=== PATIENT | female | born 1985 | race Caucasian/White ===

== ENCOUNTER 2019-03-31 07:05 | Day surgery (SDC) | payer MEDICAID ==
[~2019-03-31 07:05] MED LIST: Lactated Ringers 1,000 ML IV SCH; Sodium Chloride 0.9% 10 ML Syringe FLUSH PRN
[2019-03-31] MEDS ORDERED: Midazolam 1 MG/ML 2 ML SDV IV ONE (07:06)
[2019-03-31] MEDS ORDERED: ceFAZolin 1 GM Vial IV ONE (07:06)
[2019-03-31] MEDS ORDERED: Lidocaine 2% 5 ML SDV IV ONE (07:06)
[2019-03-31] MEDS ORDERED: Lidocaine 2% 100 MG/5 ML Syringe IVPUSH ONE (07:06)
[2019-03-31] MEDS ORDERED: Propofol 200 MG/20 ML SDV IV ONE (07:06)
[2019-03-31] MEDS ORDERED: Sodium Chloride 0.9% 0 ML ONE ×2 (07:50→08:44)
[2019-03-31] MEDS ORDERED: Lidocaine 2% Jelly 5 ML Tube ONE ×3 (08:03→08:41)
[2019-03-31] MEDS ORDERED: fentaNYL 100 MCG/2 ML SDV ONE (08:05)
[2019-03-31] MEDS ORDERED: ceFAZolin 1 GM Vial ONE (08:05)
[2019-03-31] MEDS ORDERED: Midazolam 1 MG/ML 2 ML SDV ONE (08:05)
[2019-03-31] MEDS ORDERED: Propofol 200 MG/20 ML SDV ONE ×2 (08:06→08:45)
[2019-03-31] MEDS ORDERED: Ketamine 200 MG/20 ML MDV ONE (08:06)
[2019-03-31] MEDS ORDERED: Lidocaine 2% 100 MG/5 ML Syringe ONE (08:19)
--- NOTE | 2019-03-31 09:01 | PCM.OPNOTE ---
- General Post-Op/Procedure Note Date of Surgery/Procedure: 03/31/19 Operative Procedure(s): Cystoscopy. Findings: This patient had voiding difficulty. She was found to have severe urethral stenosis. Urethral dilatation and cystoscopy were performed. Pre Op Diagnosis: Severe urethral stenosis, voiding difficulty Anesthesia Technique: MAC Primary Surgeon: Kevin Ramos Complications: None Condition: Good Free Text/Narrative:: Preoperative diagnosis: Severe voiding difficulty, history of urethral stenosis. Postoperative diagnosis: As above. Procedure performed: Urethral dilatation and cystoscopy. Informed consent was obtained from the patient regarding this procedure. All possible complications were thoroughly discussed. She understood and wished to proceed. The patient was taken to the or and given a satisfactory anesthetic. She was kept in the lithotomy position. Her genitals were prepped. Her urethra was found to be markedly stenosed. Gentle dilatation was performed up to #32 dilators. Following this, Cystoscopy was carried out through a forward-viewing A[employer] cystoscope. The bladder mucosa was normal. Both ureteric orifices were normal in location and the efflux was clear. There was no evidence of stone or neoplasm. The scope was withdrawn. The patient tolerated the procedure well.
[2019-03-31] MEDS ORDERED: Sodium Chloride 0.9% 1,000 ML IRR ONE (10:30)
== END 2019-03-31 10:30 | disposition home or self-care (01) ==
LOC: KA.SDS 07:05
PROVIDERS: ATTEND Family Medicine
DX: N35.92 Unspecified urethral stricture, female (principal); R39.198 Other difficulties with micturition; G80.9 Cerebral palsy, unspecified; E03.9 Hypothyroidism, unspecified; F25.9 Schizoaffective disorder, unspecified; F31.9 Bipolar disorder, unspecified; Z79.899 Other long term (current) drug therapy
CPT/HCPCS: 36415; 84703; J0690; J2001; J2250; J2704; J7120

== ENCOUNTER 2020-09-01 19:17 | Emergency (ER) | payer MEDICAID ==
--- NOTE | 2020-09-01 19:53 | EDM.PDOC ---
ED HPI GENERAL MEDICAL PROBLEM - General Chief Complaint: Behavioral/Psych Stated Complaint: SUICIDAL? Time Seen by Provider: 09/01/20 19:25 Source of Information: Reports: Patient, EMS, Skilled Nursing Records History Limitations: Reports: Altered Mental Status - History of Present Illness INITIAL COMMENTS - FREE TEXT/NARRATIVE: Jaz, 35-year-old female, is delivered to our facility with the [employer] ambulance for medical clearance for admission to the [facility] in [place]. Jaz has been having erratic behavior for the past 3 days with noted physical c ombativeness, verbal combativeness and suicidal ideations and gestures. Today she had wrapped a call light cord around her neck. She was administered 10 mg Zyprexa prior to the ambulance transport and is somewhat cooperative at this time verbally controlled and allowing some assessment. She has been under complete control in the facility with no extraneous exposures or events. Is noted to have numerous allergies and is on numerous medications. Onset: Gradual Onset Date: 08/30/20 Duration: Day(s):, Getting Worse Location: Reports: Head Severity: Severe - Related Data Allergies Allergy/AdvReac Type Severity Reaction Status Date / Time aripiprazole [From Abilify] Allergy Rash Verified 09/01/20 19:55 haloperidol [From Haldol] Allergy Unknown Verified 09/01/20 19:55 lurasidone [From Latuda] Allergy Unknown Verified 09/01/20 19:55 pollen extracts Allergy Sneezing Verified 09/01/20 19:55 tuberculin, purified protein Allergy Unknown Verified 09/01/20 19:55 deriva ziprasidone [From Geodon] Allergy Rash Verified 09/01/20 19:55 Home Meds: Home Meds Albuterol Sulfate [Albuterol Sulfate Hfa] 2 puff IH Q4HR PRN 07/23/18 [History] Baclofen 20 mg PO DAILY 07/23/18 [History] Baclofen 30 mg PO BID 07/23/18 [History] [place] Carbonate 900 mg PO BEDTIME 07/23/18 [History] OXcarbazepine [Oxcarbazepine] 450 mg PO BID 07/23/18 [History] Sennosides/Docusate Sodium [Senna Plus Tablet] 2 each PO BID 07/23/18 [History] bisacodyL [Bisacodyl] 5 mg PO DAILY PRN 07/23/18 [History] Cholecalciferol (Vitamin D3) [Vitamin D3] 5,000 unit PO DAILY 08/22/18 [History] LORazepam [Ativan] 0.5 mg PO BID 08/22/18 [History] Multivitamin [Multivitamins] 1 each PO DAILY 08/22/18 [History] Acetaminophen 1 - 2 tab PO Q4H PRN 03/28/19 [History] Calcium Carbonate/Vitamin D3 [Calcium 600 + Vit D 400 Softgl] 0.5 tab PO BID 03/28/19 [History] Cyanocobalamin (Vitamin B-12) [Vitamin B-12] 1,000 mcg PO DAILY 03/28/19 [History] Folic Acid 2 mg PO DAILY 03/28/19 [History] Levothyroxine [Synthroid] 100 mcg PO ACBREAKFAST 03/28/19 [History] Magnesium Hydroxide [Milk of Magnesia] 30 ml PO DAILY PRN 03/28/19 [History] Melatonin 9 mg PO BEDTIME 03/28/19 [History] Menthol [Bengay] 1 applic TOP QID PRN 03/28/19 [History] Pyridoxine HCl [Vitamin B-6] 25 mg PO DAILY 03/28/19 [History] Sennosides [Senna Lax] 8.6 mg PO BID PRN 03/28/19 [History] bisacodyL [Dulcolax] 10 mg RC DAILY PRN 03/28/19 [History] medroxyPROGESTERone Acetate [Medroxyprogesterone Acetate] 150 mg IM ASDIRECTED 03/28/19 [History] FLUoxetine [PROzac] 40 mg PO BEDTIME 09/01/20 [History] Fluticasone Propionate [Flonase Allergy Relief] 1 spray NASBOTH BID 09/01/20 [History] OLANZapine [ZyPREXA] 10 mg IM Q8HR 09/01/20 [History] Paliperidone Palmitate [Invega Trinza] 410 mg IM ASDIRECTED 09/01/20 [History] Past Medical History HEENT History: Reports: Impaired Vision Respiratory History: Reports: Asthma, Bronchitis, Recurrent Gastrointestinal History: Reports: Chronic Constipation Psychiatric History: Reports: Aggressive/Hostile Behaviors, Antisocial Behaviors, Depression, Suicide Attempt, Suicidal Ideation Social & Family History - Family History Family Medical History: No Pertinent Family History - Tobacco Use Tobacco Use Status *Q: Never Tobacco User Second Hand Smoke Exposure: No - Caffeine Use Caffeine Use: Reports: Soda - Recreational Drug Use Recreational Drug Use: No ED ROS GENERAL - Review of Systems Review Of Systems: Comprehensive ROS is negative, except as noted in HPI. Reason Not Obtained: Not fully cooperative ED EXAM, GENERAL - Physical Exam Exam: See Below Free Text/Narrative:: Alert and oriented to being in [facility]. Jaz is somewhat disgruntled and uncooperative and defiant initially on arrival. Fortunately the Zyprexa she had been given at the [facility] has significantly improved her overall status. There was one outburst and physical disruption with nursing staff but was short-lived with no injury or damage ensued. HEENT is negative discharge or deformity she has a slight disconjugate gaze. She verbalizes throughout the attempted examination benign and becomes more irritable. She does allow me to listen to her heart and lung sounds with cardiac being regular breath sounds are mildly diminished at the bases but likely due to her positioning. She is nontender to her abdomen and flank. She has AFOs on bilateral with tennis shoes in place. Radial pulses present There is no obvious injuries noted and with her lack of cooperation she is not f orced into further physical examination. She does acknowledge that she is trying to kill herself and has those thoughts in the matter what we attempt she will maintain those thoughts until she is suc cessful. Through the course of the stay she becomes somewhat more conversive and in normal tone is not happy that she is going to the [facility] in [place] but understands she needs to get back in balance with her feelings. Course - Vital Signs Last Recorded V/S: Last Vital Signs Temp 97.8 F 09/01/20 19:31 Pulse 67 09/01/20 19:31 Resp 22 H 09/01/20 19:31 BP 122/79 09/01/20 19:31 Pulse Ox 99 09/01/20 19:31 - Orders/Labs/Meds Orders: Active Orders 24 hr Category Date Time Status CBC WITH AUTO DIFF [HEME] Urgent Lab 09/01/20 19:37 Ordered COMPREHENSIVE METABOLIC PN,CMP [CHEM] Stat Lab 09/01/20 19:37 Ordered - Re-Assessments/Exams Free Text/Narrative Re-Assessment/Exam: 09/01/20 20:58 Contact with [facility] services speaking with Ambar who arranges discussion with the physician at [facility] [employer] demonstr[employer] for a provider to provider discussion. Ambar requests to be contacted at [phone] the ambulance transporting abruptly 30 minutes out of [place] and she will meet them at the facility and escort them to the admission unit for her admission intake. Dr. Olivas is contacted and agrees for the excepting of Jaz. He states that he is familiar with her as he provided part of her care during her hospitalization previously. It is noted she has been at [facility] since October 2008 and she was admitted there after being discharged from the [facility] in [facility]. Departure - Departure Time of Disposition: 21:03 Disposition: DC/Tfer to Psych Hosp/Unit 65 Condition: Fair Clinical Impression: Aggression, Depressive disorder Suicidal behavior Qualifiers: Attempted self-injury: with attempted self-injury Qualified Code(s): T14.91XA - Suicide attempt, initial encounter - Discharge Information *PRESCRIPTION DRUG MONITORING PROGRAM REVIEWED*: Not Applicable *COPY OF PRESCRIPTION DRUG MONITORING REPORT IN PATIENT JYOTI: Not Applicable Referrals: PCP,Not In Area [Primary Care Provider] - Naida Ramos MD [Physician] - Forms: ED Department Discharge Additional Instructions: Jaz will be transported by ambulance to the [facility] in [place] for direct admission under the care of Dr. Olivas. Sepsis Event Note (ED) - Focused Exam Vital Signs: Vital Signs Temp Pulse Resp BP Pulse Ox 09/01/20 19:31 97.8 F 67 22 H 122/79 99 - Problem List & Annotations (1) Suicidal behavior SNOMED Code(s): 371739972 Code(s): R46.89 - OTHER SYMPTOMS AND SIGNS INVOLVING APPEARANCE AND BEHAVIOR Status: Acute Priority: High Current Visit: Yes Qualifiers: Attempted self-injury: with attempted self-injury Qualified Code(s): T14.91XA - Suicide attempt, initial encounter (2) Aggression SNOMED Code(s): 00847786 Code(s): R46.89 - OTHER SYMPTOMS AND SIGNS INVOLVING APPEARANCE AND BEHAVIOR Status: Acute Priority: High Current Visit: Yes - Problem List Review Problem List Initiated/Reviewed/Updated: Yes - My Orders Last 24 Hours: My Active Orders 09/01/20 19:37 CBC WITH AUTO DIFF [HEME] Urgent COMPREHENSIVE METABOLIC PN,CMP [CHEM] Stat - Assessment/Plan Last 24 Hours: My Active Orders 09/01/20 19:37 CBC WITH AUTO DIFF [HEME] Urgent COMPREHENSIVE METABOLIC PN,CMP [CHEM] Stat Plan: Jaz will be transported by ambulance to the [facility] in [place] for direct admission under the care of Dr. Olivas.
[2020-09-01 20:46] LABS: ANION GAP 10.6 mmol/L (5-15); CHLORIDE,CL 106 mmol/L (98-107); SODIUM,NA 142 mmol/L (136-145)
== END 2020-09-01 21:30 ==
LOC: KA.ED 19:17
DX: F32.9 Major depressive disorder, single episode, unspecified (principal); Z88.5 Allergy status to narcotic agent; Z88.8 Allergy status to other drugs, medicaments and biological substances; Z91.048 Other nonmedicinal substance allergy status; Z79.899 Other long term (current) drug therapy
CPT/HCPCS: 36415; 80053; 85025; 99284; 99285

== ENCOUNTER 2020-12-08 19:09 | Emergency (ER) | payer MEDICAID ==
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
[2020-12-08 21:25] LABS: CHLORIDE,CL 103 mmol/L (98-107); SODIUM,NA 138 mmol/L (136-145)
[2020-12-08] MEDS ORDERED: Acetaminophen 325 MG Tab PO ONE (23:20)
[2020-12-08] MEDS ORDERED: Acetaminophen 650 MG Tab.ER PO PRN (23:20)
[2020-12-08] MEDS ORDERED: Acetaminophen 650 MG Tab.ER ONE (23:25)
== END 2020-12-09 00:09 ==
LOC: KA.ED 19:09 → SUPCPDRO 19:09 → KA.ED 12-09 00:09
DX: T14.91XA Suicide attempt, initial encounter (principal); J45.909 Unspecified asthma, uncomplicated; Z88.5 Allergy status to narcotic agent; Z88.8 Allergy status to other drugs, medicaments and biological substances; Z20.822 Contact with and (suspected) exposure to COVID-19
CPT/HCPCS: 36415; 80048; 81001; 85025; 99284; 99285; A9270-GY; U0002